=== PATIENT | female | born 1975 | race African-American/Black ===

== ENCOUNTER 2016-03-27 06:43 | Emergency (ER) | payer BC, OTHER ==
[~2016-03-27] VITALS: Ht 172.7 cm; Wt 170.0 kg
[~2016-03-27 06:43] MED LIST: CLIN1CAP6 PO; CYCL-36 PO; IBUP800 PO; SULF1TAB47 PO; TAB-TAB PO; TYLE500T PO
[2016-03-27 06:45] VITALS: BP 135/86; PULSE 86; RESP 18; TEMP 97.5; O2SAT 100
[2016-03-27] MEDS ORDERED: CYCL1TAB29 PO (07:40)
[2016-03-27] MEDS ORDERED: IBUP800T23 PO (07:40)
--- NOTE | 2016-03-27 07:41 | PD ---
HPI Chief Complaint: Back/ Neck Pain or Injury Time Seen by Provider: 07:36 Travel History International Travel<30 days: No Contact w/Intl Traveler<30days: No Traveled to known affect area: No History of Present Illness HPI Patient is a 40-year-old female who presents him her chart for evaluation of left lower back pain that radiates down the back of her left leg. Patient states his symptoms started 3 days ago, she's been taking ibuprofen intermittently. She denies any bladder or bowel incontinence, no saddle paresthesia, no weakness in her legs. Patient denies any injury or trauma but states her back just tightened up. Patient denies any significant past medical history. [facility] Past Medical History Medical History: Denies Significant Hx Diminished Hearing: No Immunizations Current: Yes Migraines: Yes : 4 Para: 4 : 2 Tubal Ligation: Yes (2003) Past Surgical History Abdominal Surgery: Yes ( 3 YEARS AGO) Section: Yes (2003) Gynecologic Surgery: Yes (C SECTION X 1) Social History Alcohol Use: No Tobacco Use: No Substance Use: No Allergies-Medications (Allergen,Severity, Reaction): Coded Allergies: Penicillin (Verified Allergy, Mild, DOESNT REMEMBER, 03/27/16) Reported Meds & Prescriptions Reported Meds & Active Scripts Active Review of Systems Except as stated in HPI: all other systems reviewed are Neg Musculoskeletal: Positive: Myalgias, Cramping, Pain Physical Exam Narrative GENERAL: Obese, well-developed patient. Resting comfortably in no acute distress. SKIN: Warm and dry. HEAD: Normocephalic. EYES: No scleral icterus. No injection or drainage. NECK: Supple, trachea midline. No JVD or lymphadenopathy. CARDIOVASCULAR: Regular rate and rhythm without murmurs, gallops, or rubs. RESPIRATORY: Breath sounds equal bilaterally. No accessory muscle use. GASTROINTESTINAL: Abdomen soft, non-tender, nondistended. MUSCULOSKELETAL: No cyanosis, or edema. Tenderness to palpation in paraspinal musculature in the left lower lumbar region, left leg left elicits pain in the lower back. 5/5 muscle strength in bilateral lower extremities. Positive pedal pulses bilaterally, brisk less than 3 second capillary refill. BACK: Nontender without obvious deformity. No CVA tenderness. Data Data Last Documented VS Vital Signs Date Time Temp Pulse Resp B/P Pulse Ox O2 Delivery O2 Flow Rate FiO2 1/25/17 06:45 97.5 86 18 135/86 100 [facility] Medical Decision Making Medical Screen Exam Complete: Yes Emergency Medical Condition: Yes Interpretation(s) Vital Signs Date Time Temp Pulse Resp B/P Pulse Ox O2 Delivery O2 Flow Rate FiO2 03/27/16 06:45 97.5 86 18 135/86 100 Differential Diagnosis Sciatica versus strain versus sprain versus spasm versus discogenic pain Narrative Course Patient is a 40-year-old female who presented to emergency for evaluation of 3 days of lower back pain radiating down the back of her left leg. Patient is neurovascularly and neurologically intact. Physical examination appears most consistent with muscle spasm, sciatica. Patient be provided with a prescription for ibuprofen and a muscle relaxer. She is encouraged to continue range of motion exercises, avoid bedrest, avoid exacerbating activities. She is encouraged to apply warm moist heat to affected area as well. Patient verbalized understanding of these instructions. She was encouraged to follow up with primary doctor return to emergency department for any new or worsening symptoms. Patient is stable for discharge. Diagnosis Primary Impression: Sciatica Qualified Code: M54.32 - Sciatica of left side Additional Impression: Spasm of lumbar paraspinous muscle Referrals: Primary Care Physician Patient Instructions: General Instructions, Muscle Spasm (ED), Sciatica (ED) Additional Instructions: Take medications as directed Alternate heat and ice to affected area, continue range of motion exercises, avoid bed rest, avoid exacerbating activities Follow-up with your primary doctor Return to emergency department for any new or worsening symptoms Med/Other Pt SpecificInfo: Prescription(s) given Scripts Ibuprofen 800 Mg [id number] Mg PO Q8H PRN (Pain/Inflammation) #60 TAB Ref 0 Prov:Nesha Cisneros 03/27/16 Cyclobenzaprine (Flexeril)10 Mg Tab10 Mg PO TID PRN (MUSCLE SPASM) 10 Days Ref 0 Prov:Nesha Cisneros 03/27/16 Disposition: 01 DISCHARGE HOME Condition: Stable Nesha Cisneros Mar 27, 2016 07:41
== END 2016-03-27 07:58 | disposition home or self-care (01) ==
LOC: NEPB 06:43
DX: M54.32 Sciatica, left side (principal); M62.830 Muscle spasm of back
CPT/HCPCS: 99283

== ENCOUNTER 2016-09-06 04:08 | Emergency (ER) | payer BC ==
[~2016-09-06] VITALS: Ht 172.7 cm; Wt 170.0 kg
[~2016-09-06 04:08] MED LIST changes: -CLIN1CAP6 PO; -CYCL-36 PO; +CYCL1TAB29 PO; -IBUP800 PO; +IBUP800T23 PO; -SULF1TAB47 PO; -TAB-TAB PO; -TYLE500T PO
[2016-09-06 04:10] VITALS: BP 127/69; PULSE 91; RESP 16; TEMP 97.9; O2SAT 98
[2016-09-06] MEDS ORDERED: TOPA25TA8 PO (04:26)
--- NOTE | 2016-09-06 04:26 | PD ---
HPI Chief Complaint: Back/ Neck Pain or Injury Time Seen by Provider: 04:23 Travel History International Travel<30 days: No Contact w/Intl Traveler<30days: No Traveled to known affect area: No History of Present Illness HPI Patient comes in complaining of sciatica flareup that began yesterday while at work. Patient states she has chronic low back pain and has issues with sciatica from time to time. Patient's last issue with her sciatic was earlier this year. Patient states this feels similar. Patient states pain began when she went from sitting to standing yesterday. Patient denies any trauma, numbness or tingling anywhere, loss or change in bowel or bladder, fevers, , chest pain, shortness of breath, or IV drug use. Pain is burning and spasm like and right low back radiates in her right lower leg. Patient tried using a muscle rub with no improvement of her symptoms. Pain is worse certain movement. PFSH Past Medical History Diminished Hearing: No Immunizations Current: Yes Migraines: Yes : 4 Para: 4 : 2 Tubal Ligation: Yes (2003) Past Surgical History Abdominal Surgery: Yes ( 3 YEARS AGO) Section: Yes (2003) Gynecologic Surgery: Yes (C SECTION X 1) Social History Alcohol Use: No Tobacco Use: No Substance Use: No Allergies-Medications (Allergen,Severity, Reaction): Coded Allergies: Penicillin (Verified Allergy, Mild, DOESNT REMEMBER, 09/06/16) Reported Meds & Prescriptions Reported Meds & Active Scripts Active Medrol Dosepak (Methylprednisolone) 4 Mg Dspk 4 Mg PO DIRECTED Per Pharmacist direction Flexeril (Cyclobenzaprine HCl) 10 Mg Tab 10 Mg PO Q8HR PRN Reported Topamax (Topiramate) 25 Mg Tab 25 Mg PO BID Review of Systems Except as stated in HPI: all other systems reviewed are Neg Physical Exam Narrative GENERAL: Well-developed, overly nourished, in no acute distress, and non-ill appearing. SKIN: Focused skin assessment warm and dry. HEAD: Atraumatic. Normocephalic. EYES: Pupils equal and round. EOMI. No scleral icterus. No injection or drainage. ENT: No nasal bleeding or discharge. Mucous membranes pink and moist. NECK: Trachea midline. Supple. No nuclear rigidity. CARDIOVASCULAR: Dorsal pulses 2+, intact, and equal bilaterally. RESPIRATORY: No accessory muscle use. No respiratory distress. MUSCULOSKELETAL: No obvious deformities. No clubbing. No cyanosis. No edema. Full range of motion. No tenderness or crepitus or midline lumbar spine. Patient reports tenderness to her right SI joint. Straight leg test positive on right. Sensation is intact over first web space and equal bilateral lower extremities. NEUROLOGICAL: Awake and alert. No obvious cranial nerve deficits. Motor grossly within normal limits. Normal speech. PSYCHIATRIC: Appropriate mood and affect; insight and judgment normal. Data Data Last Documented VS Vital Signs Date Time Temp Pulse Resp B/P Pulse Ox O2 Delivery O2 Flow Rate FiO2 09/06/16 04:22 18 09/06/16 04:10 97.9 91 127/69 98 Room Air Orders Dexamethasone Inj (Decadron Inj) (09/06/16 04:30) Cyclobenzaprine (Flexeril) (09/06/16 04:30) MDM Medical Decision Making Medical Screen Exam Complete: Yes Emergency Medical Condition: Yes Differential Diagnosis Acute upper back pain, sciatica, muscle strain, fracture, contusion, other Narrative Course The patient presented complaining of back pain with radiation down leg. There was no history of recent fall or trauma. There was no evidence to support genitourinary etiology. There is also no evidence to suggest vascular pathology such as AAA dissection. No fevers or other evidence to suspect infectious processes, abscess, osteomyelitis etc. The patients neurological exam is normal with normal motor and sensory. There is no saddle paresthesias reported and no bowel or bladder incontinence or retention. I suspect the pain is mechanical in nature with sciatica. Clinical suspicion, plan of care and management was discussed with the patient. The patient was instructed to follow up with their health care provider. The patient was also instructed to return if the pain worsened, changed, or developed weakness or bowel or bladder trouble. The patient agreed with plan. Patient in no obvious distress upon re-evaluation. Patient was asked if they wanted to speak to my attending, which the patient did not wish to do at this time. Any questions/concerns in reference to patient diagnosis/condition discussed and clarified prior to patient's discharge. Reinforced sheer importance of close follow up with patient's primary physician or primary care clinic. Instructed patient to return to ED immediately, if symptoms return/ worsen. Pt showed understanding of above instructions. Further instructions and recommendations were detailed in discharge paperwork. Pt ambulated without difficulty out of ED at discharge. Diagnosis Primary Impression: Sciatica Qualified Code: M54.31 - Sciatica of right side Patient Instructions: General Instructions, Sciatica (ED) Departure Forms: Work Release Enter return to work date: Sep 08, 2016 Additional Instructions: Follow-up with your primary care physician in 3-5 days for reevaluation. Take all medication as prescribed. Return to the emergency department if symptoms get worse. Med/Other Pt SpecificInfo: Prescription(s) given Scripts Methylprednisolone Dosepak (Medrol Dosepak)4 Mg Dspk4 Mg PO DIRECTED #1 DSPK Ref 0 Per Pharmacist direction Prov:Chandu Montalvo MD 09/06/16 Cyclobenzaprine (Flexeril)10 Mg Tab10 Mg PO Q8HR PRN (MUSCLE SPASM) #15 TAB Ref 0 Prov:Chandu Montalvo MD 09/06/16 Disposition: 01 DISCHARGE HOME Condition: Stable Carlo Thomas Sep 06, 2016 04:26
[2016-09-06] MEDS ORDERED: CYCL1TAB29 PO (04:27)
[2016-09-06] MEDS ORDERED: MEDR4PAK PO (04:27)
[2016-09-06] MEDS ORDERED: DEXAMETHASONE SOD PHOS 4 MG/ML VIAL IM ONE (04:30)
[2016-09-06] MEDS ORDERED: CYCLOBENZAPRINE HCL 10 MG TAB PO ONE (04:30)
== END 2016-09-06 05:42 | disposition home or self-care (01) ==
LOC: NEPD 04:08
DX: M54.31 Sciatica, right side (principal); Z79.899 Other long term (current) drug therapy; Z88.0 Allergy status to penicillin
CPT/HCPCS: 96372; 99284; J1100

== ENCOUNTER 2017-02-24 15:43 | Emergency (ER) | payer BC ==
[~2017-02-24] VITALS: Ht 170.2 cm; Wt 136.5 kg
[~2017-02-24 15:43] MED LIST changes: +CYCL10TA PO; -CYCL1TAB29 PO; -IBUP800T23 PO; +MEDR4PAK PO; +TOPI25 PO
[2017-02-24 15:50] VITALS: BP 117/78; PULSE 106; RESP 20; TEMP 101; O2SAT 96
[2017-02-24] MEDS ORDERED: SODIUM CHLOR 0.9% 1000 ML INJ 1,000 ML IV ONE (16:00)
[2017-02-24] MEDS ORDERED: SODIUM CHLORIDE 0.9% FLUSH 10 ML FLUSH IVF PRN (16:00)
--- NOTE | 2017-02-24 16:21 | RADRPT ---
EXAM DATE/TIME: 02/24/2017 16:01 [place] COMPARISON: No previous studies available for comparison. INDICATIONS : Cough, fever, congestion and shortness of breath. MEDICAL HISTORY : None. SURGICAL HISTORY : section. Tubal ligation. ENCOUNTER: Initial ACUITY: 4 - 6 days PAIN SCORE: 3/10 LOCATION: Bilateral chest FINDINGS: Single AP view of the chest. Respiratory artifact is noted. Hazy opacity in the lungs bilaterally sug gesting mild pulmonary edema or pleural effusions. No evidence of pneumothorax. Mild cardiac silhouet te enlargement. CONCLUSION: Mild cardiac silhouette enlargement and mild hazy lung opacity bilaterally that may represent mild ed sharif or pleural effusions. Body habitus and respiratory artifact may also contribute to the hazy opaci ty. Carter Garrison MD on February 24, 2017 at 16:16 Board Certified Radiologist. This report was verified electronically.
[2017-02-24] MEDS ORDERED: ACETAMINOPHEN 325 MG TAB PO ONE (16:30)
[2017-02-24 16:34] LABS: AUTOMATED NEUTROPHIL # 2.4 TH/MM3 (1.8-7.7); BASOPHIL % 0.7 % (0.0-2.0); HEMATOCRIT 33.4 % (35.0-46.0); LYMPH % 35.1 % (9.0-44.0); LYMPHOCYTE # 1.7 TH/MM3 (1.0-4.8); MEAN CELL VOLUME 81.2 FL (80.0-100.0); MEAN CORPUSCULAR HEMOGLOBIN 26.8 PG (27.0-34.0); MEAN CORPUSCULAR HGB CONC 32.9 % (32.0-36.0); MONOCYTE # 0.7 TH/MM3 (0-0.9); NEUT % 49.2 % (16.0-70.0); PLATELET COUNT 351 TH/MM3 (150-450); RED BLOOD COUNT 4.12 MIL/MM3 (4.00-5.30); RED CELL DISTRIBUTION WIDTH 13.9 % (11.6-17.2); WHITE BLOOD COUNT 4.8 TH/MM3 (4.0-11.0)
[2017-02-24 16:52] LABS: BICARBONATE 23.8 MEQ/L (21.0-32.0); CALCIUM 8.2 MG/DL (8.5-10.1); CREATININE 0.83 MG/DL (0.50-1.00)
--- NOTE | 2017-02-24 16:54 | PD ---
HPI Chief Complaint: Cold / Flu Symptoms Time Seen by Provider: 15:53 Travel History International Travel<30 days: No Contact w/Intl Traveler<30days: No Traveled to known affect area: No History of Present Illness HPI Patient is a 41-year-old female presents the emergency department for evaluation of cough congestion and body aches for the past 4 days. Patient states slightly gotten worse, associated with fevers, took Tylenol late last night, no significant relief. No sick contacts, did not get a flu shot this year. States symptoms are moderate, duration is 4 days, gradually worsening, associated signs symptoms as above. PFSH Past Medical History Medical History: Denies Significant Hx Diminished Hearing: No Immunizations Current: Yes Migraines: Yes ?: Not LMP: 02/22/17 : 4 Para: 4 : 2 Tubal Ligation: Yes (2003) Past Surgical History Abdominal Surgery: Yes ( 3 YEARS AGO) Section: Yes (2003) Gynecologic Surgery: Yes (C SECTION X 1) Social History Alcohol Use: No Tobacco Use: No Substance Use: No Allergies-Medications (Allergen,Severity, Reaction): Coded Allergies: penicillin G (Unverified Allergy, Mild, DOESNT REMEMBER, 10/15/16) Reported Meds & Prescriptions Reported Meds & Active Scripts Active Promethazine-Codeine Liq 6.25-10 Mg/5 Ml Syrp 5 Ml PO Q6H PRN Medrol Dosepak (Methylprednisolone) 4 Mg Dspk 4 Mg PO DIRECTED Per Pharmacist direction Flexeril (Cyclobenzaprine HCl) 10 Mg Tab 10 Mg PO Q8HR PRN Reported Topamax (Topiramate) 25 Mg Tab 25 Mg PO BID Review of Systems Except as stated in HPI: all other systems reviewed are Neg Physical Exam Narrative GENERAL: Well-developed well-nourished, no obvious distress SKIN: Focused skin assessment warm/dry. HEAD: Atraumatic. Normocephalic. EYES: Pupils equal and round. No scleral icterus. No injection or drainage. ENT: No nasal bleeding or discharge. Mucous membranes pink and moist. NECK: Trachea midline. No JVD. CARDIOVASCULAR: Regular rhythm mildly tachycardic. No murmur appreciated. RESPIRATORY: No accessory muscle use. Clear to auscultation. Breath sounds equal bilaterally. Dry cough, no sputum production. Patient GASTROINTESTINAL: Abdomen soft, non-tender, nondistended. Hepatic and splenic margins not palpable. MUSCULOSKELETAL: No obvious deformities. No clubbing. No cyanosis. No edema. NEUROLOGICAL: Awake and alert. No obvious cranial nerve deficits. Motor grossly within normal limits. Normal speech. PSYCHIATRIC: Appropriate mood and affect; insight and judgment normal. Data Data Last Documented VS Vital Signs Date Time Temp Pulse Resp B/P (MAP) Pulse Ox O2 Delivery O2 Flow Rate FiO2 02/24/17 16:15 98 Room Air 02/24/17 16:10 101 18 02/24/17 15:50 101.0 117/78 (91) Orders Orders Basic Metabolic Panel (Bmp) (02/24/17 15:53) Complete Blood Count With Diff (02/24/17 15:53) Chest, Single Ap (02/24/17 15:53) Ecg Monitoring (02/24/17 15:53) Iv Access Insert/Monitor (02/24/17 15:53) Oximetry (02/24/17 15:53) Oxygen Administration (02/24/17 15:53) Sodium Chloride 0.9% Flush (Ns Flush) (02/24/17 16:00) Influenzae A/B Antigen (02/24/17 15:53) Group A Rapid Strep Screen (02/24/17 15:53) Sodium Chlor 0.9% 1000 Ml Inj (Ns 1000 M (02/24/17 16:00) Acetaminophen (Tylenol) (02/24/17 16:30) Strep Culture (Group A) (02/24/17 16:10) Ed Discharge Order (02/24/17 17:03) Labs Laboratory Tests Test 02/24/17 16:12 White Blood Count 4.8 TH/MM3 Red Blood Count 4.12 MIL/MM3 Hemoglobin 11.0 GM/DL Hematocrit 33.4 % Mean Corpuscular Volume 81.2 FL Mean Corpuscular Hemoglobin 26.8 PG Mean Corpuscular Hemoglobin Concent 32.9 % Red Cell Distribution Width 13.9 % Platelet Count 351 TH/MM3 Mean Platelet Volume 7.0 FL Neutrophils (%) (Auto) 49.2 % Lymphocytes (%) (Auto) 35.1 % Monocytes (%) (Auto) 14.0 % Eosinophils (%) (Auto) 1.0 % Basophils (%) (Auto) 0.7 % Neutrophils # (Auto) 2.4 TH/MM3 Lymphocytes # (Auto) 1.7 TH/MM3 Monocytes # (Auto) 0.7 TH/MM3 Eosinophils # (Auto) 0.0 TH/MM3 Basophils # (Auto) 0.0 TH/MM3 CBC Comment DIFF FINAL Differential Comment Blood Urea Nitrogen 5 MG/DL Creatinine 0.83 MG/DL Random Glucose 87 MG/DL Calcium Level 8.2 MG/DL Sodium Level 134 MEQ/L Potassium Level 3.5 MEQ/L Chloride Level 103 MEQ/L Carbon Dioxide Level 23.8 MEQ/L Anion Gap 7 MEQ/L Estimat Glomerular Filtration Rate 91 ML/MIN MDM Medical Decision Making Medical Screen Exam Complete: Yes Emergency Medical Condition: Yes Differential Diagnosis Influenza, Viral illness, Pneumonia, Severe bacterial illness unlikely. Narrative Course Patient roomed in the emergency department, IV fluids given, she is beginning to feel better, positive for influenza, out of the window for Tamiflu. Discussed the risks benefits competitions of Tamiflu and this would been off she was still offered medication and declined after discussion of its intended use. Chest x-ray appears to be clear, there is significant limitations of the study secondary to patient's body habitus. Last 24 hours Impressions Chest X-Ray 02/24/17 1553 Signed Impressions: Service Date/Time: Friday, February 24, 2017 16:01 - CONCLUSION: Mild cardiac silhouette enlargement and mild hazy lung opacity bilaterally that may represent mild edema or pleural effusions. Body habitus and respiratory artifact may also contribute to the hazy opacity. Carter Garrison MD Correlating this read clinically think the patient can be discharged home to follow up with her primary care physician this was discussed with her. Discussed symptomatically management returned ED criteria. Diagnosis Primary Impression: Influenza A Patient Instructions: General Instructions, Influenza (DC) Med/Other Pt SpecificInfo: Prescription(s) given Scripts Promethazine-Codeine Liq (Promethazine-Codeine Liq) 6.25-10 Mg/5 Ml Syrp 5 ML PO Q6H Y for COUGH, #100 ML 0 Refills Prov: Dylan Mccord MD 02/24/17 Disposition: DISCHARGE HOME Condition: Stable Dylan Mccord MD Feb 24, 2017 16:54
[2017-02-24] MEDS ORDERED: PROM6.256 PO (17:16)
== END 2017-02-24 17:39 | disposition home or self-care (01) ==
LOC: NEPC 15:43
DX: J11.1 Influenza due to unidentified influenza virus with other respiratory manifestations (principal)
CPT/HCPCS: 71010; 80048; 85025; 87081; 87804; 87880; 96360; 99285; J7030